=== PATIENT | female | born 1970 | race African-American/Black ===

== ENCOUNTER 2017-05-18 19:29 | Inpatient (IN) ==
--- NOTE | 2017-05-18 20:25 | PROVIDER DOCUMENTATION ---
HPI-General Adult - General Chief Complaint: Extremity Pain Stated Complaint: RT LEG SWELLING/PAIN Time Seen by Provider: 05/18/17 20:03 Source: patient Allergies/Adverse Reactions: Patient Allergies Allergy/AdvReac Type Severity Reaction Status Date / Time hydrocodone bitartrate * Allergy Mild RASH Verified 05/08/17 00:48 [From Vicodin] Latex, Natural Rubber Allergy Mild RASH Verified 05/08/17 00:48 ciprofloxacin [From Cipro] AdvReac VOMITING Verified 05/18/17 19:37 Home Medications: Home Medication List Medication Instructions Recorded Confirmed Last Taken Type Oxycodone/APAP 5 mg/325 mg 1 each PO Q4H PRN PRN #5 tablet 04/16/17 05/18/17 Unknown Rx [Percocet-5] Ciprofloxacin HCl [Cipro] 500 mg PO BID #14 tablet 05/08/17 05/18/17 Unknown Rx Ondansetron HCl [Zofran] 1 - 2 tab PO Q6H PRN PRN #20 tablet 05/08/17 05/18/17 Unknown Rx - History of Present Illness -Gen Adult Nature of Presenting Problems: Patient presents complaining of right leg pain and swelling. She has been having this problem intermittently but became constant and more severe today. She has history of cervical CA and is set to have port placed for treatment of this next week. She denies chest pain, dyspnea, fever, abd pain, n/v. She denies history of DVT. She was seen last night at for n/v and UTI. Location of Pain/Injury: reports: lower extremity Pain Radiation: reports: no radiation Quality of Pain: reports: aching Severity: reports: moderate Onset/Duration: reports: 24 hours ago Timing: reports: getting worse Context/Activities at Onset: reports: none Modifying Factors: improves with: palpation Associated Symptoms: reports: denies symptoms Similar Symptoms Previously?: Yes Recently seen or treated by another doctor?: Yes Review of Systems - Adult - REVIEW OF SYSTEMS - ADULT Constitutional: reports: no symptoms reported Eyes: reports: no symptoms reported Ears, Nose, Mouth & Throat: reports: no symptoms reported Cardiovascular: reports: no symptoms reported Respiratory: reports: no symptoms reported Gastrointestinal: reports: no symptoms reported Genitourinary: reports: no symptoms reported Musculoskeletal: reports: see HPI. denies: back pain Integumentary: reports: no symptoms reported Neurological: reports: no symptoms reported Psychiatric: reports: no symptoms reported Endocrine: reports: no symptoms reported Hematologic/Lymphatic: reports: no symptoms reported. denies: blood clots, easy bruising Allergic/Immunologic: reports: no symptoms reported All Other Systems: Reviewed and Negative Past History - Adult - PAST MEDICAL HISTORY-ADULT Review of Records: reports: Old Records Reviewed, Nursing Assessment Review, Medications Reviewed, Social history reviewed & non-contributory. Major Childhood Illnesses: reports: denies history Cardiovascular: reports: denies history, other (anemia) Respiratory: reports: denies history Gastrointestinal: reports: denies history Obstetrical/Gynecological: reports: uterine/ovarian cancer Genitourinary: reports: denies history Musculoskeletal: reports: denies history Neurological: reports: denies history Endocrine/Immune: reports: denies history Other Conditions: reports: denies history - PRIOR SURGERIES/PROCEDURES Surgical/Procedure History: reports: reviewed, not pertinent - IMMUNIZATION STATUS Childhood Immunizations: See Nurse Assessment Flu Vaccine: See Nurse Assessment - FAMILY HISTORY Family History: reviewed, not pertinent - SOCIAL HISTORY Smoking: denies Substance Use: none/never Alcohol Use Frequency: never Physical Exam-General - PHYSICAL EXAM-ADULT Initial Vital Signs Reviewed: Yes - CONSTITUTIONAL General Appearance: appears well, alert, no apparent distress - EYES Eyes: PERRL/EOMI, pink conjunctivae - HEAD, EARS, NOSE, MOUTH & THROAT HENMT: normocephalic/atraumatic, moist mucous membranes - NECK Neck: full range of motion, supple - RESPIRATORY Respiratory: lungs clear, normal breath sounds - CARDIOVASCULAR Cardiovascular: normal peripheral pulses, regular rate, rhythm, no edema, other (HR 90) - GASTROINTESTINAL (ABDOMEN) Abdominal Exam: normal bowel sounds, non tender, soft - LYMPHATIC Lymphatic: no adenopathy. negative: inguinal node tender - MUSCULOSKELETAL Back Exam: normal inspection, no CVA tenderness Extremity: normal range of motion, swelling (right leg is tender and swollen. + joey's sign.), tenderness Peripheral Pulses: dorsalis-pedis (R): 2+, dorsalis-pedis (L): 2+ - SKIN Integumentary: normal color, normal turgor, warm/dry - NEUROLOGIC Neurologic: grossly normal - PSYCHIATRIC Psych/Mental Status: normal mood/affect, oriented x 3 Progress - PLAN OF CARE/RESULTS Progress/Plan/Lab Results: Vital Signs - 8 hr 07/21/17 19:34 05/18/17 20:00 Temperature 98.1 F Pulse Rate 124 H 94 H Respiratory Rate 16 22 Blood Pressure 117/78 O2 Sat by Pulse Oximetry 100 100 Orders Category Date Time Status Venous U/S Right Leg Stat Ther 05/18/17 20:12 Ordered Result Diagrams: 05/20/17 05:42 05/20/17 05:42 - CT/MRI 1 CT Study: Angiogram Impression: Abnormal (Small PE RLL; Right hydropnephrosis. Wen at [facility]) - ULTRASOUND (By Radiology) 1 US Study: other Impression: Abnormal (Extensive DVT, suspects it goes up into her pelvis but doesn't have a probe to check that far. Pt also complaining of SOB now. Kimi Holley RVT) - CONSULTS/PCP/HOSPITALIST Notification #1 *Consult/PCP/Hospitalist*: Dr. Bourne, Hospitalist Time Discussed: 01:15 (Will admit pt) Consult Disposition: Admit - CHANGE OF SHIFT REPORT (ED Provider) Report Given and Care Transferred to:: GAETANO Stiles Time of Transfer: 21:33 Items Pending: Ultrasound Results Departure - Departure Date of Disposition Decision: 05/19/17 Time of Disposition Decision: 01:15 DIAGNOSIS: DVT (deep venous thrombosis) Qualifiers: DVT location: lower extremity Affected thrombotic vein of extremity: unspecified vein of extremity Chronicity: acute Laterality: right Qualified Code (s): I82.401 - Acute embolism and thrombosis of unspecified deep veins of right lower extremity Pulmonary embolism Qualifiers: Pulmonary embolism type: other Chronicity: acute Acute cor pulmonale presence: without acute cor pulmonale Qualified Code(s): I26.99 - Other pulmonary embolism without acute cor pulmonale Hydronephrosis Qualifiers: Hydronephrosis type: unspecified Qualified Code(s): N13.30 - Unspecified hydronephrosis Cervical cancer Qualifiers: Malignant neoplasm of cervix location: unspecified location Qualified Code(s): C53.9 - Malignant neoplasm of cervix uteri, unspecified Disposition: ADMITTED INPATIENT 09 Certified Medical Emergency: Emergent Condition: Stable - Critical Care Note This patient required my direct & personal management of CC.: No Attestation - Physician/ KIMI Attestation Patient care was provided by Advanced Practice Provider:: Yes Advanced Practice Provider:: Sanjay Stiles Advanced Practice Provider documentation review:: The Mid-level provider documentation, treatment plan and medical decision making was reviewed by the physician who agrees with all treatment and medical decision making by the MLP.
[2017-05-18 23:04] LABS: BASO% 0.3 % (0.0-0.8); EOS# 0.06 X1000 (0.0-0.7); EOS% 0.4 % (0.0-10.0); HEMATOCRIT 25.9 % (37.0-47.0); IMM GRAN# 0.05 X1000 (0.0-0.04); IMM GRAN% 0.3 % (0.0-0.5); LYMPH# 0.99 X1000 (1.2-3.4); LYMPH% 6.8 % (20.5-51.1); MANUAL DIFF NEEDED? NO; MCH 22.6 PG (27-31); MCHC 30.9 g/dL (33-37); MCV 73.2 FL (81-99); MONO# 1.01 X1000 (0.11-0.59); MPV 9.2 FL (7.4-10.4); NEUT% 85.2 % (42.2-75.2); PLT 491 X1000 (130-400); RBC 3.54 XMIL (4.2-5.4)
[2017-05-18 23:20] LABS: URINE MICRO REVIEW NEEDED? NO; URINE SOURCE CLEAN CATCH
[2017-05-18 23:26] LABS: AGAP 16; ALBUMIN 3.7 g/dL (3.5-5.0); ALKALINE PHOSPHATASE 75 U/L (32-104); BUN 12 mg/dL (8-22); CALCIUM 10.2 mg/dL (8.8-10.2); CHLORIDE 94 mmol/L (98-107); COSMO 264; GOT 14 U/L (10-30); GPT 7 U/L (10-36); POTASSIUM 4.4 mmol/L (3.5-5.1); SODIUM 132 mmol/L (136-145); TCO2 22 mmol/L (25-35); TOTAL BILIRUBIN 0.42 mg/dL (0.20-1.00); TOTAL PROTEIN 8.7 g/dL (6.3-8.3)
[2017-05-18 23:31] LABS: BILIRUBIN URINE NEGATIVE (NEGATIVE); BLOOD URINE NEGATIVE (NEGATIVE); COLOR YELLOW; GLUCOSE URINE NEGATIVE (NEGATIVE); LEUKOCYTES URINE MODERATE (NEGATIVE); NITRITE URINE NEGATIVE (NEGATIVE); PH URINE 5.5; PROTEIN URINE 50 mg/dL (NEGATIVE); SP GRAVITY URINE 1.024; TURBIDITY URINE HAZY (CLEAR); UROBILINOGEN URINE NORMAL (NORMAL)
[2017-05-18 23:32] LABS: UR EPITHELIAL CELLS <10 /HPF (<10); URINE BACTERIA 2+ /HPF; URINE CULTURE NEEDED? YES; URINE RBC <10 /HPF (<10)
[2017-05-19] MEDS ORDERED: PERCOCET-10 PO ONE (00:51)
[2017-05-19] MEDS ORDERED: LOVENOX 1 MG/KG SUBQ ONE (01:16)
[2017-05-19] MEDS ORDERED: MORPHINE IV ONE (01:22)
[2017-05-19] MEDS ORDERED: LOVENOX SUBQ ONE (01:30)
[2017-05-19] MEDS ORDERED: ZOFRAN IV PRN (03:30)
[2017-05-19 04:34] LABS: IRON SATURATION 3 %; TIBC 292 ug/dL; TOTAL IRON 10 ug/dL (49-151); UNBOUND IRON 282 ug/dL (112-346)
[2017-05-19] MEDS: PERCOCET-5 PO PRN ×4 (04:41→23:11)
--- NOTE | 2017-05-19 08:20 | HISTORY AND PHYSICAL ---
PRIMARY CARE PHYSICIAN: Dr. Newberry CHIEF COMPLAINT: Right lower extremity edema and shortness of breath. HISTORY OF PRESENTING ILLNESS: A 47-year-old female with a history of cervical cancer, who presented to the emergency department with a 1-day history of having right lower extremity edema and shortness of breath. The patient states that her leg was hurting for the past 2 weeks, but it never got swollen until recently. She apparently came to the emergency department. She had imaging done which did show that she did have an extensive DVT in the right lower extremity and also a PE. She also did have some hydronephrosis. Due to presenting symptoms, it was thought that she would need hospitalization and further management. At the time of my examination, she denied any headache, nausea, vomiting, diarrhea, fever, chills, chest pain, hemoptysis, melena, but complained of shortness of breath and had right lower extremity pain. PAST MEDICAL HISTORY: Cervical cancer. PAST SURGICAL HISTORY: Breast reduction. ALLERGIES: Allergies to Vicodin and Cipro. CURRENT MEDICATIONS: As listed in the medication reconciliation. SOCIAL HISTORY: She denies any history of smoking, alcohol or illicit drug use. FAMILY HISTORY: No history of coronary disease. REVIEW OF SYSTEMS: Twelve point review of systems is as in HPI. Other systems negative. PHYSICAL EXAMINATION: GENERAL: Cooperative, friendly female. She is resting comfortably now. VITAL SIGNS: Temperature 98.1 degrees, pulse 124 respirations 16, blood pressure 117/78. HEENT: Atraumatic, normocephalic. Extraocular movements intact. PERRLA. NECK: Supple. CHEST: Clear to auscultation. CARDIOVASCULAR: Regular rhythm. ABDOMEN: Soft. Positive bowel sounds. EXTREMITIES: Right lower extremity edema and tenderness. NEURO: She is awake, alert, oriented x3. : No bladder distention. SKIN: Warm. LABORATORY STUDIES: WBC 14.50, hemoglobin 8.0, hematocrit 25.9, platelets is 491. Sodium is 132, potassium 4.4, chloride 94. CO2 is 22. BUN is 12, creatinine 1.0, glucose is 89. ASSESSMENT: A 47-year-old female with a history of cervical cancer, who presented to our emergency department with 1-day history of having right lower extremity edema and pain. She had imaging done which did show that she did have a PE and extensive DVT in the right lower extremity. Due to her presenting symptoms, she will need hospitalization for further management. ASSESSMENT: 1. Acute pulmonary embolism. 2. Right lower extremity deep vein thrombosis. 3. Right hydronephrosis. 4. Cervical cancer. PLAN: 1. We will admit patient to medical floor with telemetry. 2. We will start patient on Lovenox. 3. Consult urology for hydronephrosis. 4. We will consult oncology for cervical cancer, and urology for hydronephrosis 5. We will do iron studies as she is anemic. 6. We will continue to follow and reassess. cc: MD Freddie Nunez MD MTDD
--- NOTE | 2017-05-19 09:26 | Diag Imaging Result Doc PS360 ---
ANGIOGRAM/PULMONARY ARTERIES - 05/18/2017 INDICATION: extensive DVT, SOB, cervical cancer TECHNIQUE: Axial CT images were obtained after administering intravenous contrast. Coronal MIP images were generated. A CT dose reduction protocol was used. COMPARISON: CT abdomen pelvis 04/23/2017 FINDINGS: There are a couple of very small filling defects in segmental pulmonary arteries in the right lower lobe. See images 95-96 and 107-110. No infiltrates. No adenopathy. There is right hydronephrosis which is already known. Bones are intact. IMPRESSION: Tiny, segmental pulmonary emboli in the right lower lobe. Electronically signed by David Camarena 05/19/2017 9:23 AM
[2017-05-19] MEDS ORDERED: VENOFER IV SCH (10:45)
[2017-05-19] MEDS ORDERED: VENOFER 300 MG in NS 250 ML IV ONE (11:00)
[2017-05-19] MEDS ORDERED: NS 500 ML ONE (12:34)
--- NOTE | 2017-05-19 14:10 | PROGRESS NOTE ---
DATE: 05/19/2017 SUBJECTIVE: Patient is stable. Pain in her right leg is slightly diminished, still some difficulty there. Denies shortness of breath or cough. OBJECTIVE: Vital Signs: Afebrile, pulse 83, respirations 18, blood pressure 137/87, O2 saturation in room air 99%. CV: RRR. Lungs: CTA. Extremities: Right lower extremity and thigh swollen moderately. LAB DATA: Reviewed from admission. ASSESSMENT: 1. Pulmonary emboli, small, right. 2. Deep venous thrombosis right lower extremity. 3. Right hydronephrosis related to #4. 4. Cervical cancer, followed in [place]. 5. Iron deficiency anemia. PLAN: 1. Continue full dose Lovenox, bed rest. 2. Monitor her CBC closely, and type and screen. cc: MD Freddie Knight MD
[2017-05-19] MEDS: LOVENOX SUBQ SCH (14:45)
[2017-05-19] MEDS: PEPCID PO SCH (14:45)
[2017-05-20] MEDS: LOVENOX SUBQ SCH ×2 (02:36→15:51)
[2017-05-20 06:05] LABS: HEMATOCRIT 28.8 % (37.0-47.0); HEMOGLOBIN 9.2 g/dL (12.0-16.0); MCH 23.8 PG (27-31); MCHC 31.9 g/dL (33-37); MCV 74.4 FL (81-99); MPV 9.3 FL (7.4-10.4); RBC 3.87 XMIL (4.2-5.4); RETIC% 1.22 % (0.8-2.1); RETIC-HE 22.5 PG (28.2-36.6)
[2017-05-20 06:26] LABS: CALCIUM 10.2 mg/dL (8.8-10.2); POTASSIUM 4.3 mmol/L (3.5-5.1)
[2017-05-20] MEDS: PERCOCET-5 PO PRN ×4 (06:59→23:02)
[2017-05-20] MEDS: PEPCID PO SCH (08:58)
[2017-05-20] MEDS ORDERED: VENOFER 300 MG in NS 250 ML IV ONE (11:00)
[2017-05-20] MEDS ORDERED: MILK OF MAGNESIA PO PRN (11:12)
--- NOTE | 2017-05-20 12:51 | Extremity Venous Study ---
PROCEDURE NAME: Venous U/S Right Leg - 05/18/2017 RIGHT LOWER EXTREMITY VENOUS ULTRASOUND: REQUESTING PHYSICIAN: Dr. Lowry. SALES TRADER: Kishan. INDICATION: Edema in the setting of cervical cancer. FINDINGS: The deep and superficial veins of the right lower extremity were visualized along their course. There is extensive deep venous thrombosis seen throughout the right leg extending from the common femoral vein, superficial femoral, popliteal, posterior tibial and peroneal vein. There is also superficial venous thrombosis seen in the greater saphenous vein. This, per the heat transfer technician note, does appear to propagate above level of the inguinal ligament but was unable to fully visualize this. All these vessels have significantly diminished or absent flow with a large bulky thrombus within the lumen. SUMMARY: 1. Extensive DVT in the right lower extremity propagating above the inguinal ligament down to the tibial vessels. 2. Findings were called to Dr. Lowry in the emergency department at 10 PM. cc: MD Freddie Huynh MD
--- NOTE | 2017-05-20 14:57 | PROGRESS NOTE ---
DATE: 05/20/2017 SUBJECTIVE: Patient doing well overall. She is using the bedside commode when absolutely necessary. She denies shortness of breath. No cough, no hemoptysis. OBJECTIVE: Vital signs: Afebrile. Pulse 88, respirations 20, blood pressure 106/79, O2 saturation room air 96%. CV: RRR. Lungs: CTA. Extremities: Moderate amount of swelling right thigh, right calf area. Neuro: Nonfocal. Cranial nerves intact. LABORATORY DATA: Urine. No pathogenic growth. Sodium 131, potassium 4.3, chloride 94, CO2 24, BUN 11, creatinine 1.2, calcium 10.2, blood sugar 95, ferritin 387. White count 19, hemoglobin 9.2, hematocrit 28, platelets 477,000, retic count 1.22. ASSESSMENT: 1. Small right pulmonary thromboemboli. 2. Deep vein thrombosis right lower extremity. 3. Right hydronephrosis, chronic, followed by physicians in [place]. 4. Cervical cancer. 5. Iron deficiency anemia. PLAN: At this time continue Lovenox at full strength, I talked with the patient about Eliquis versus Coumadin and she prefers Eliquis and will likely transition over from Lovenox to the Eliquis tomorrow if that is okay with Dr. Newberry. Patient doing well. Continue prophylaxis of PD with Pepcid, MOM p.r.n. constipation. cc: MD Freddie Knight MD
[2017-05-21] MEDS: LOVENOX SUBQ SCH ×2 (02:52→13:11)
[2017-05-21] MEDS: PERCOCET-5 PO PRN ×5 (03:05→22:00)
--- NOTE | 2017-05-21 07:21 | PROGRESS NOTE ---
DATE: 05/21/2017 SUBJECTIVE: Ms. Andres was admitted with acute DVT involving the right leg and small pulmonary embolism. The patient is doing fair. The patient does have pain in the right leg, lower abdomen. The patient told to have a UTI. She did have fever and chills. She was getting Bactrim DS. The patient claimed it was making her sick. She does have vague pain in the lower abdomen. No typical chest pain or palpitations. Mild cough. No expectoration. No nausea. Oral intake is poor. Admission history and physical noted. OBJECTIVE: Vital Signs: Reviewed. Neck: Supple. No JVD. Lungs: Bilateral good air entry present. Cardiovascular: S1 and S2 heard. Abdomen: Soft, globular. Vague tenderness, both lower quadrants and hypogastrium. Extremities: No cyanosis, clubbing. No acute DVT. Patient does have swelling of the right leg. PREDICTIVE MAINTENANCE TECHNICIAN: Alert, awake. Able to move all 4 limbs. CONSIDERATION: 1. Acute deep venous thrombosis involving the right leg. 2. Pulmonary embolism. 3. Patient had cervical cancer. 4. Iron-deficiency and blood-loss anemia. 5. Chronic pain. 6. Blood work done on the did reveal leukocytosis. PLAN: I am going to recheck blood work, septic workup, chest x-ray. Continue current treatment. Close observation. I will also get noncontrast CT scan of the abdomen and pelvis for further evaluation. Continue rest of the treatment and close observation. Overall plan discussed with the patient and she is in agreement. Her other problems include urinary tract infection but first culture was negative, leukocytosis, chronic pain. cc: Freddie Newberry MD
--- NOTE | 2017-05-21 07:41 | Diag Imaging Result Doc PS360 ---
EXAM: CHEST-2 VIEWS HISTORY: leucocytosis TECHNIQUE: PA and lateral chest COMMENT: There is no evidence of acute cardiac or pulmonary disease. Compared to 05/08/2017 there is been no significant change in the appearance of the chest. IMPRESSION: Normal chest. Electronically signed by Rubin Roblero 05/21/2017 7:39 AM
--- NOTE | 2017-05-21 08:19 | Diag Imaging Result Doc PS360 ---
EXAM: ABDOMEN/PELVIS W/O CONTRAST INDICATION: abd. 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 Although its exact borders are difficult to discern on unenhanced study, it does appear to be larger measuring 5.7 x 4.6 cm axially (4.7 x 4.1 cm previously). It is now causing obstruction of the distal right ureter. There is right hydroureteronephrosis. There is retained contrast media in the right renal collecting system and right ureter as well as a very delayed nephrogram from contrast given on 05/19/2017 for CTA chest. There is a small amount of fluid layering in the pelvis on the right and there is soft tissue nodularity at the periphery of the fluid collection indicating malignant pelvic implants. Similar to the previous study, the uterus and especially the lower uterine segment is very heterogeneous and irregular. Right inguinal lymphadenopathy is again noted. There is new soft tissue edema involving the upper thigh and around the iliac and femoral veins. This is probably related to at least partial obstruction of the right iliac vein by the pelvic mass. It is also suspicious for venous thrombosis, especially since there has been interval diagnosis of pulmonary embolism. Otherwise, there is vicarious excretion of contrast in the gallbladder from the recent CTA. By unenhanced CT, the liver is grossly unremarkable. The remainder of the solid viscera of the abdomen and pelvis and the remainder of the GI tract are essentially unremarkable. IMPRESSION: 1.Apparent interval worsening of the malignant process in the pelvis with at least a small increase in size of the dominant right pelvic sidewall mass. 2.Interval obstruction of the distal right ureter by the pelvic sidewall mass with associated right hydroureteronephrosis. 3.Interval development of right lower extremity soft tissue edema that is probably due to obstruction of the right iliac vein by the dominant pelvic sidewall mass. This may be causing venous thrombosis as well, especially given the recent diagnosis of pulmonary embolism. 4.Uterine heterogeneity and irregularity consistent with known advanced cervical carcinoma. 5.Other incidental/nonacute findings detailed above. Electronically signed by Clive Mccall 05/21/2017 8:17 AM
[2017-05-21 08:23] LABS: BASO% 0.3 % (0.0-0.8); EOS# 0.09 X1000 (0.0-0.7); EOS% 0.6 % (0.0-10.0); HEMATOCRIT 28.3 % (37.0-47.0); HEMOGLOBIN 8.8 g/dL (12.0-16.0); IMM GRAN# 0.09 X1000 (0.0-0.04); IMM GRAN% 0.6 % (0.0-0.5); LYMPH# 1.16 X1000 (1.2-3.4); LYMPH% 8.4 % (20.5-51.1); MANUAL DIFF NEEDED? YES; MCH 23.2 PG (27-31); MCHC 31.1 g/dL (33-37); MCV 74.7 FL (81-99); MONO# 1.31 X1000 (0.11-0.59); MONO% 9.4 % (1.7-9.3); MPV 9.5 FL (7.4-10.4); NEUT% 80.7 % (42.2-75.2); PLT 482 X1000 (130-400); RBC 3.79 XMIL (4.2-5.4)
[2017-05-21 08:44] LABS: AGAP 14; ALBUMIN 3.2 g/dL (3.5-5.0); ALKALINE PHOSPHATASE 81 U/L (32-104); BUN 9 mg/dL (8-22); CALCIUM 10.2 mg/dL (8.8-10.2); CHLORIDE 97 mmol/L (98-107); COSMO 270; GOT 13 U/L (10-30); GPT 6 U/L (10-36); POTASSIUM 4.1 mmol/L (3.5-5.1); SODIUM 136 mmol/L (136-145); TCO2 25 mmol/L (25-35); TOTAL BILIRUBIN 0.35 mg/dL (0.20-1.00); TOTAL PROTEIN 8.2 g/dL (6.3-8.3)
[2017-05-21 08:54] LABS: BANDS 4 % (0-1); HYPOCHROM 1+; LYMPHS 8 % (21-51); MONO 8 % (1-9)
[2017-05-21] MEDS: PEPCID PO SCH (09:16)
--- NOTE | 2017-05-21 18:17 | PROGRESS NOTE ---
DATE: 05/21/2017 SUBJECTIVELY: Ms. Andres is doing fair. Her pain is under control. No fever or chills. Tolerating food well. The patient does ambulate. Her CT scan results reviewed and discussed with the patient. I am going to get opinion of urologist for further evaluation. Lab data also noted. OBJECTIVE: Vital Signs: Reviewed. Neck: Supple. No JVD. Lungs: Bilateral good air entry present. Abdomen: Soft. No distention. Bowel sounds present. Vague tenderness left lower quadrant. MINER PICK: Alert, awake, able to move all 4 limbs. CONSIDERATION: DVT involving right leg. CT scan did reveal mass in the right pelvic sidewall. Some obstruction of the distal right ureter. Right lower extremity DVT. Will continue current treatment. Close observation. Waiting for urologist evaluation. Oncologist following patient with us. The patient is getting IV iron treatment. cc: Freddie Newberry MD
--- NOTE | 2017-05-21 21:11 | CONSULTATION ---
DATE OF CONSULTATION: 05/19/2017 ADMITTING PHYSICIAN: Dr. Ralph Bourne. REQUESTING PHYSICIAN: Dr. Ralph Bourne. We appreciate this consult. CHIEF COMPLAINT: Anemia. HISTORY OF PRESENT ILLNESS: Ms. Andres is a very pleasant, 47-year-old female with a history of cervical cancer. She presented to [facility] Emergency Department with a complaint of 24 hours of right lower extremity swelling and shortness of breath. The patient stated that she had right lower extremity pain for 2 weeks. The patient had ultrasound of right lower extremity performed as well as pulmonary arteriogram which revealed pulmonary embolus and DVT. The patient was admitted to the hospital for acute management of PE and DVT. PAST MEDICAL HISTORY: Cervical cancer. PAST SURGICAL HISTORY: Breast reduction. SOCIAL HISTORY: The patient denies history of tobacco, alcohol or illicit drug use. FAMILY HISTORY: Negative for any hematologic or oncologic problem. MEDICATIONS ON ADMISSION: 1. Percocet. 2. Zofran. 3. Pepcid. 4. Lovenox. 5. Milk of Magnesia. ALLERGIES: Vicodin and Cipro. REVIEW OF SYSTEMS: A 14 point review of systems was obtained and is negative except for as mentioned in the HPI. PHYSICAL EXAMINATION: General: Ms. Andres is a very pleasant, 47-year-old female lying supine in bed in no immediate distress. Vital Signs: Temperature 97.8 degrees, blood pressure 137/87, heart rate 83, respirations 18, O2 saturation 99% on room air. HEENT: Normocephalic, atraumatic. Mucous membranes are pale and moist. Sclerae is anicteric. Extraocular movements intact. Neck: Supple. Lungs: Clear to auscultation bilaterally. Chest expansion is equal bilaterally. CARDIOVASCULAR: S1, S2 is heard without murmur, rub or gallop. Abdomen: Soft, nontender, nondistended. Bowel sounds positive all quadrants. No rebound or guarding noted. Extremities: Without clubbing or cyanosis. She does have right lower extremity 1+ edema and edema and warmth to her right thigh. Dermatologic: No rashes, bruises or lesions. Neurologic: The patient is awake, alert, and oriented x4. She has no focal motor deficit at this time. LABORATORY DATA: Hemoglobin 8, hematocrit 25.9, white blood cell count 14.50, platelets 491,000. ANC 12.35, sodium 132, potassium 4.4, chloride 94, CO2 is 22, BUN 12, creatinine 1, and glucose is 89. Iron saturation is 3%. Calcium 10.2. UA is positive for UTI. Culture is currently pending. IMAGING STUDIES: Pulmonary arteriogram reveals a tiny PE in the right lower lobe. ASSESSMENT AND PLAN: 1. Anemia with a hemoglobin of 8. I would transfuse 1 unit packed red blood cells and follow CBC at this time. I would initiate anemia workup. 2. Stage IIIB cervical cancer. The patient is scheduled for x-ray therapy as well as to begin cisplatin on May 25. She is a new patient to Dr. Shelly Aguayo. 3. Pulmonary embolism right lower lobe with right lower extremity deep venous thrombosis, currently on Lovenox. 4. Right hydronephrosis. Urology is consulted and will be following the patient. 5. Iron deficiency. The patient will be scheduled for Venofer 300 mg IV x2 days. 6. We will follow along with you and make further recommendations pending outcomes. The above reflects the history, examination, assessment and plan of Dr. Medley. Dictated by DOC Saleem for Lane Medley MD cc: DOC Saleem MD Bharat K. Vakharia, MD
[2017-05-22] MEDS: LOVENOX SUBQ SCH ×2 (02:16→15:35)
[2017-05-22] MEDS: PERCOCET-5 PO PRN ×6 (02:16→22:49)
--- NOTE | 2017-05-22 06:12 | CONSULTATION ---
DATE OF CONSULTATION: 05/21/2017 ATTENDING AND REFERRING PHYSICIAN: Dr. Newberry. HISTORY OF PRESENT ILLNESS: This 47-year-old female has stage IIIB cervical cancer. She states it was diagnosed on 04/25. She states she had increasing right lower extremity edema and pain on her right side. She was seen in the emergency room, where a CT scan revealed an increase in the size of the right true bony pelvic mass, now causing right hydroureteronephrosis. Also noted was the right lower extremity edema. A Doppler study revealed significant thrombosis of the deep veins as well. A pulmonary angiogram revealed a small right lower lobe embolus. The patient states she still has pain, but it is under control. She denies any previous urologic surgery. She has no history of kidney stones. She states she had an occasional urinary tract infection. She states she has had some hematuria ever since her biopsies. PAST MEDICAL HISTORY: Cervical cancer. Chronic right-sided pain. PAST SURGICAL HISTORY: As noted in the HPI. Breast reduction. SOCIAL HISTORY: There is no tobacco or alcohol use. ALLERGIES: She is allergic to hydrocodone, latex, and Cipro. REVIEW OF SYSTEMS: She denies any problems with heart disease, hypertension, diabetes, or elevated cholesterol. PHYSICAL EXAMINATION: General: A normally-developed, well-nourished, age-apparent black female, oriented in all ways, and cooperative. HEENT: Normal for age. Lungs: Clear. Cardiovascular: Regular rate and rhythm. Abdomen: Mildly protuberant, soft. Diffuse tenderness, but no guarding or rebound. No hepatosplenomegaly or masses. Normal bowel sounds. Genitourinary: Deferred until surgery. Extremities: Left side normal, right side with edema. LABORATORY EVALUATION: Has a white count of 13.89, hemoglobin of 8.8, hematocrit 28.3, platelets are 482,000. Serum electrolytes are normal. BUN 9, creatinine 0.9. CT scan reveals the increasing in size of the right true bony pelvic mass, now with right hydroureteronephrosis. Also notable is the right lower extremity edema. IMPRESSION: 1. Cervical cancer. 2. Right pelvic mass that is increased in size. 3. Right lower extremity edema, with deep venous thrombosis. 4. Right hydroureteronephrosis, with normal renal function. PLAN: Discussed with the patient the mass is obstructing the urine output of her right kidney. Discussed the treatment would be cystoscopic exam and placement of a right double-J stent to try to open up the right ureter. Discussed that if the cancer has obstructed the ureter in such a way, the stent may not be able to be placed. If that was the case, a right percutaneous tube could be placed to decompress the kidney. This planned procedure, benefits versus risks, and possible complications, including, but not limited to, bleeding, infection, not being able to place the stent, need for stent changes, was discussed. She seems to understand and desires to proceed. Thank you for this consultation. cc: MD Freddie Richardson MD
--- NOTE | 2017-05-22 09:03 | PROGRESS NOTE ---
DATE: 05/21/2017 SUBJECTIVE: The patient reports that she had some leg pain last night, but this has now improved. OBJECTIVE: Vital Signs: Temperature 97.4 degrees, heart rate 85, respirations 18, blood pressure 98/46, O2 saturation 100% on room air. LABORATORY: White blood cells 13.89, hemoglobin 8.8, hematocrit 28.3, platelet count 482,000, sodium 136, potassium 4.1, chloride 97, CO2 25, BUN 9, creatinine 0.9, glucose 90. PHYSICAL EXAMINATION: CV: Regular rate and rhythm, C1, S2 heard. Respiratory : Chest is essentially clear to auscultation bilaterally. Normal respiratory effort. Gastrointestinal: Abdomen is soft and nontender, nondistended. Extremities: Right lower extremity has some diffuse swelling throughout. Some pitting pretibial edema noted as well. No erythema or warmth noted at this time. ASSESSMENT AND PLAN: 1. Cervical cancer. Patient is set to start chemo with radiation later this week. We will reassess her once she is out of the hospital to see her readiness to proceed at that time. 2. Acute pulmonary embolus, deep vein thrombosis. Patient is currently on therapeutic Lovenox. Recommend that she be either transitioned to Eliquis or Xarelto upon discharge. 3. Hydronephrosis. The patient has an interval obstruction of the distal right ureter by the pelvic sidewall mass with associated right hydroureteronephrosis. Treatment of her cervical cancer when able as per above. Urology consult is pending. 4. Anemia. Patient has ongoing vaginal bleeding due to her cervical cancer. She has received packed red blood cells as well as iron since her admission. We will continue to monitor and continue to transfuse p.r.n. Dictated by ROMA Killian for Shelly Aguayo MD cc: MD Freddie Wilde MD I have seen and examined the patient and agree with the above A/P. Shlely SUMMERS
[2017-05-22] MEDS: PEPCID PO SCH (09:32)
--- NOTE | 2017-05-22 09:47 | PROGRESS NOTE ---
DATE: 05/22/2017 The patient is doing fair. The patient has pain in the right lower quadrant. Leg swelling is improving. I did CT scan of the abdomen and pelvis which did reveal increasing size of the pelvic mass and urinary obstruction on the right. Urology consult obtained with Dr. Carpenter. The patient is scheduled to have cystoscopy and stent placement today. The patient is receiving IV iron treatment. She is also on Lovenox for DVT. She denied any chest pain or palpitations. No nausea or vomiting. PHYSICAL EXAMINATION: Vital Signs: Patient is afebrile. Respiratory: Lungs, bilateral good air entry present. Cardiac: S1 and S2 heard. Abdomen: Soft, globular. Bowel sounds present. Extremities: No cyanosis, clubbing. Minimal swelling of the right leg. Tenderness right lower quadrant. Patient does have swelling of the right leg though it is improving. 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 Able to move all 4 limbs. LAB DATA: Done yesterday, hemoglobin 8.8, platelet count 482,000. WBC count 13.89. Electrolytes were fairly benign. BUN 9, creatinine 0.9. Blood culture and urine culture negative. Hematology ,oncology and urology consult reviewed. PLAN: We will continue current treatment. The patient will need stent to prevent further urinary obstruction. After stent placement, will plan discharge soon. cc: Freddie Newberry MD
[2017-05-22] MEDS ORDERED: NEOSPORIN G.U. IRRIGANT ONE (11:37)
[2017-05-22] MEDS ORDERED: XYLOCAINE-MPF 2% ONE (11:49)
[2017-05-22] MEDS ORDERED: VERSED ONE (11:49)
[2017-05-22] MEDS ORDERED: DIPRIVAN 1% ONE (11:49)
[2017-05-22] MEDS ORDERED: KEFZOL 1 GM/D5W 1 GM/50 ML IVPB ONE (12:16)
[2017-05-22] MEDS ORDERED: ZOFRAN ONE (12:39)
[2017-05-22] MEDS ORDERED: DECADRON ONE (12:39)
[2017-05-22] MEDS ORDERED: DITROPAN PO PRN (13:53)
--- NOTE | 2017-05-22 13:57 | Diag Imaging Result Doc PS360 ---
RETROGRADES 2 OR 3 FILMS - 05/22/2017 INDICATION: RT. RETROGRADE, RT. STENT TECHNIQUE: The exam was performed by the patient's urologist. 32nd seconds fluoroscopy time was used. 14 images were obtained. COMPARISON: CT from 05/21/2017 FINDINGS: There is obstruction of the right distal ureter at the level of S2, by the right pelvic sidewall mass visible on a few prior CTs. This produces a relatively long segment stricture of the distal ureter. This was successfully crossed by a wire. A right nephroureteral stent was placed in good position. IMPRESSION: No complication. Electronically signed by David Camarena 05/22/2017 1:54 PM
--- NOTE | 2017-05-22 19:59 | OPERATIVE NOTE ---
PROCEDURE DATE: 05/22/2017 SURGEON: Amado Carpenter MD. PREOPERATIVE DIAGNOSIS: Stage T3b cervical cancer with right hydronephrosis. POSTOPERATIVE DIAGNOSIS: Stage T3b cervical cancer with right hydronephrosis. PROCEDURE PERFORMED: 1. Cystoscopic examination. 2. Right retrograde ureteral pyelogram. 3. Placement right double-J stent. ANESTHESIA: General via laryngeal mask. FINDINGS: Cystoscopic exam: Urethra-greater than 21 [place]ib[place]ian, without stricture. Bladder-normal ureteral orifices bilaterally. No papillary lesions or trabeculations. Right retrograde ureteral pyelogram reveals significant obstruction throughout the pelvic ureter that starts at the pelvic brim. The ureter was markedly dilated above this area as well as the renal collecting system. No intrinsic filling defects were noted. examination: Normal external female. Normal vaginal mucosa. No adnexal masses. Very hard and enlarged cervix and uterus. There was blood on the examining hand. INDICATION FOR PROCEDURE: This 47-year-old female was recently diagnosed with cervical carcinoma. She developed shortness of breath and right sciatic pain and swelling of the right lower extremity. A CT scan revealed significant right hydronephrosis. DESCRIPTION OF OPERATION: After informed consent was obtained from the patient, her receiving IV antibiotics, she was taken the main OR cystoscopy room, placed in supine position. General anesthesia via laryngeal mask was achieved. She was then placed in the low lithotomy position and prepped and draped in the usual sterile fashion for cystoscopic exam. A 21-Djiboutian cystoscope was passed through the patient's urethra and into the bladder with findings noted above. An 8-[place]ib[place]ian cone-tipped catheter was passed through the cystoscope, engaged the right ureteral orifice. Contrast was injected with findings noted above. The 8-[place]ib[place]ian cone-tipped catheter was removed and a 0.035 zip wire was passed through the cystoscope and into the ureter. After some manipulation, it was able to be passed up into the kidney. A large amount of clear efflux came out of the ureter after the wire bypassed the obstruction. A 6-D[place]iboutian, 24 cm double-J stent was passed over the zip wire and up into the kidney with some manipulation. At completion, the stent appeared in good position. The renal end verified by fluoroscopic exam, bladder end directly visualized. Stent removal string was removed. The bladder was drained. Cystoscope was removed. exam was performed. Findings are as noted above. She tolerated the procedure well. Estimated blood loss was less than 1 mL. She was taken to the recovery room in good condition. cc: MD Freddie Richardson MD
[2017-05-22] MEDS: PERIDEX MT SCH (22:49)
[2017-05-23] MEDS: ELIQUIS PO SCH ×2 (02:46→08:01)
[2017-05-23] MEDS: PERCOCET-5 PO PRN ×3 (02:46→12:12)
[2017-05-23 07:25] VITALS: BP 118/77
[2017-05-23] MEDS: PEPCID PO SCH (08:00)
[2017-05-23] MEDS: PERIDEX MT SCH (08:01)
--- NOTE | 2017-05-23 14:43 | DISCHARGE SUMMARY ---
ADMISSION DATE: 05/18/2017 DISCHARGE DATE: 05/23/2017 FINAL DISCHARGE DIAGNOSES: 1. Deep venous thrombosis and pulmonary embolism. 2. Cervical cancer with obstructive uropathy. 3. Pelvic mass. 4. Iron-deficiency anemia. 5. Right hydronephrosis. HISTORY OF PRESENT ILLNESS/HOSPITAL COURSE: Ms. Andres is a 47-year-old patient, admitted with right leg swelling and pain. The patient recently diagnosed to have cervical cancer. She was under care of [facility] oncologist and Dr. Shelly Aguayo. Patient found to have DVT and small pulmonary embolism. The patient also had iron-deficiency anemia. The patient was admitted, started on Lovenox. The patient received blood transfusion 1 unit. Also she received IV iron treatment. I did CT scan of the abdomen and pelvis which did reveal increasing pelvic mass causing urinary obstruction. Urology consult obtained. Dr. Carpenter did cystoscopy. The patient had retrograde pyelograms, there was obstruction of the right distal ureter, it was causing relatively long segment stricture of the distal ureter and Dr. Carpenter put a stent. The patient tolerated procedure well. Overall patient is doing better. I stopped her Lovenox, started her on Eliquis. Discussed at length about Eliquis risk of bleeding and consequences. The patient understood and agreed. Overall patient is doing better. Leg swelling improved. She is ambulating well. The patient remained afebrile. OBJECTIVE: Vital Signs: Noted O2 saturation on room air between 96-100, Lungs: Bilateral good air entry present. CVS: S1 and S2 heard. Abdomen: Soft, nontender. Bowel sounds present. Vague tenderness right lower quadrant. Extremities: No cyanosis, clubbing. 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 DIAGNOSTIC DATA: Lab data done on the : WBC count 13.89, hemoglobin was 8.8, hematocrit 28.3. Her reticulocyte count was 1.22. Electrolytes fairly benign. BUN was 9, creatinine 0.9. Ferritin was 387. Urine 10-20 WBC, moderate leukocytes, urine culture was negative. CT scan of the abdomen and pelvis did reveal right hydronephrosis, increasing size of the pelvic mass, and DVT of the right leg, advanced cervical carcinoma. Overall patient received maximum benefit of hospitalization. Advised her to have followup with me in 1 week. Continue followup with her oncologist. Follow up with Dr. Carpenter. She will need stent replacement periodically. Watch for bleeding. In case of more distress, call us back or go to emergency room. cc: Freddie Newberry MD
== END 2017-05-23 12:26 | disposition home or self-care (01) ==
LOC: ED 19:29 → 4N 19:30 → SUATTDRO 19:30
PROVIDERS: ADMIT Internal Medicine; ATTEND Internal Medicine